=== PATIENT | female | born 1955 | race Caucasian/White ===

== ENCOUNTER → 2019-03-05 | Outpatient (CLI) | payer OTHER ==
[~2019-03-05] MED LIST: 5-Htp100 MG; CALC1.25T; DHEA 10 MG TAB1 EACH PO; ERGO400; Evening Primro500 MG; MAGOXI400; MULT50L; PROG100 PO
[2019-03-07 18:06] LABS: HPV 16 Negative (Negative); HPV 18 Negative (Negative); HPV OTHER HR TYPES Negative (Negative)
== END | disposition home or self-care (01) ==
LOC: LAB 16:00 → LAB SHORT 16:00
PROVIDERS: Obstetrics & Gynecology
DX: Z01.419 Encounter for gynecological examination (general) (routine) without abnormal findings (principal)
CPT/HCPCS: 87624; G0123

== ENCOUNTER → 2020-03-10 | Outpatient (CLI) | payer OTHER ==
[~2020-03-10] MED LIST changes: -CALC1.25T; +CALCIUM CARBON500 M1 PO; -ERGO400; +IMITREX50 M2 PO; +SYNTHROID50 MC1 PO; +VALTREX PO; +VITAMIN D31000 UNI1 PO
[2020-03-13 15:10] LABS: HPV 16 Negative (Negative); HPV 18 Negative (Negative); HPV OTHER HR TYPES Negative (Negative)
== END | disposition home or self-care (01) ==
LOC: LAB SHORT 11:40 → LAB 11:40
PROVIDERS: Obstetrics & Gynecology
DX: Z01.419 Encounter for gynecological examination (general) (routine) without abnormal findings (principal)
CPT/HCPCS: 87624; G0123

== ENCOUNTER → 2020-06-15 | Outpatient (CLI) | payer OTHER ==
[2020-06-15 14:16] LABS: BASOPHILS ABSOLUTE AUTO 0.07 K/mm3 (0.00-0.23); BASOPHILS PERCENT AUTO 1 % (0-2); EOSINOPHILS ABSOLUTE AUTO 0.05 K/mm3 (0.00-0.68); EOSINOPHILS PERCENT AUTO 1 % (0-6); Hematocrit 40.8 % (33.0-51.0); Hemoglobin 13.6 g/dL (11.5-16.0); IMMATURE GRAN ABSOLUTE AUTO 0.04 K/mm3 (0.00-0.10); IMMATURE GRAN PERCENT AUTO 1 % (0-1); LYMPHOCYTES ABSOLUTE AUTO 1.15 K/mm3 (0.84-5.20); LYMPHOCYTES PERCENT AUTO 13 % (21-46); MONOCYTES ABSOLUTE AUTO 0.68 K/mm3 (0.16-1.47); MONOCYTES PERCENT AUTO 8 % (4-13); Mean Corpuscular HGB 29.4 pg (26.0-34.0); Mean Corpuscular HGB Conc 33.3 g/dL (31.5-36.5); Mean Corpuscular Volume 88 fL (80-100); Mean Platelet Volume 10.4 fL (9.1-12.4); NEUTROPHILS ABSOLUTE AUTO 6.76 K/mm3 (1.96-9.15); NEUTROPHILS PERCENT AUTO 77 % (41-73); Platelet Count 230 K/mm3 (150-400); RDW Coefficient Variation 13.5 % (11.7-14.2); RDW Standard Deviation 43.8 fL (35.1-46.3); Red Blood Cell Count 4.63 M/mm3 (3.80-5.20); White Blood Cell Count 8.75 K/mm3 (4.00-11.30)
[2020-06-15 14:31] LABS: Alanine Aminotransfer (ALT/SGP 33 U/L (12-78); Albumin/Globulin Ratio 1.1 (0.8-1.8); Alk Phos 82 U/L (40-126); Anion Gap 8 mmol/L (6-16); Aspartate Aminotrans (AST/SGOT 51 U/L (12-37); Bilirubin, Total 0.4 mg/dL (0.1-1.0); Blood Urea Nitrogen 13 mg/dL (8-24); Bun/Creatinine Ratio 13.8 (12.0-20.0); CO2, Blood 31 mmol/L (21-32); Calcium, Blood 10.1 mg/dL (8.5-10.1); Chloride, Blood 103 mmol/L (98-108); Creatinine, Blood 0.94 mg/dL (0.40-1.00); Globulin, Blood 3.5 g/dL (2.2-4.0); Glomerular Filtration Rate 60 (60-); Glucose, Blood 111 mg/dL (70-99); Potassium, Blood 3.9 mmol/L (3.5-5.5); Sodium, Blood 142 mmol/L (136-145); Total Protein, Blood 7.5 g/dL (6.4-8.2); Troponin I <0.017 ng/mL (0.000-0.040)
== END | disposition home or self-care (01) ==
LOC: LAB SHORT 14:10 → LAB EV 14:10
PROVIDERS: Chiropractor
DX: R07.9 Chest pain, unspecified (principal)
CPT/HCPCS: 80053; 83690; 84484; 85025; 85379

== ENCOUNTER 2020-10-05 16:49 | Inpatient (IN) | payer OTHER | END 2020-10-09 21:10 | disposition short-term general hospital (02) | DRG 444 | LOC: ER 16:49 → ERHOLD 16:50 → MEDS 10-06 12:16 | PROVIDERS: ADMIT Internal Medicine | DX: K80.51 Calculus of bile duct without cholangitis or cholecystitis with obstruction (principal); U07.1 COVID-19; E03.9 Hypothyroidism, unspecified; R74.01 Elevation of levels of liver transaminase levels; R91.1 Solitary pulmonary nodule; Z79.899 Other long term (current) drug therapy; Z88.5 Allergy status to narcotic agent ==

== ENCOUNTER 2021-12-20 11:10 | Day surgery (SDC) | payer MEDICARE ==
[~2021-12-20] VITALS: Ht 167.6 cm; Wt 86.2 kg
[~2021-12-20 11:10] MED LIST changes: +ALEN70; +PANT20
--- NOTE | 2021-12-20 12:33 | NUR ---
12/20/21 1233 RONALD CORONADO CALLED PATIENT'S TO CERTIFIED ORTHOPTIST PAIN RX WHILE PATIENT IS IN SURGERY.
--- NOTE | 2021-12-20 12:47 | NUR ---
12/20/21 1247 Huber Porter ROPIVACAINE 0.5% 30 MLS MIXED W/ EPI 0.15 (1MG/ML) PER ORDER TO MAKE ROPICACINE 0.5% 1:200,000 FOR INJECTION AT OPSITE BY DR BUENO. 30 MLS INJECTED.
== END 2021-12-20 14:30 | disposition home or self-care (01) ==
LOC: ORSCSDS 11:10
PROVIDERS: Podiatrist Foot & Ankle Surgery
PROC: 0SGH04Z Fusion of Right Tarsal Joint with Internal Fixation Device, Open Approach (ICD-10-PCS; principal; 2021-12-20 12:30)
DX: M21.611 Bunion of right foot (principal); E03.9 Hypothyroidism, unspecified; Z79.899 Other long term (current) drug therapy
CPT/HCPCS: A9270; C1713; J0171; J0690; J1100; J2250; J2405; J2704; J2795; J3010

== ENCOUNTER 2022-03-11 09:25 | Day surgery (SDC) | payer MEDICARE ==
[~2022-03-11] VITALS: Ht 167.6 cm; Wt 85.7 kg
[2022-03-11] MEDS ORDERED: ESTRADIOL0.5 MG PO (10:21)
[2022-03-11] MEDS ORDERED: PROG100 PO (10:22)
--- NOTE | 2022-03-11 11:50 | NUR ---
03/11/22 1150 Huber Porter ROPIVCAINE 0.5% 30 MLS MIXED W/ EPI 0.15 (1MG/ML) PER ORDER TO MAKE ROPIVACAINE 0.5% 1:200,000 FOR INJECTION AT OPSITE BY DR BUENO. 30 MLS INJECTED.
--- NOTE | 2022-03-11 13:56 | NUR ---
03/11/22 1356 Carmencita Carrasquillo PATIENT REPORTED 4/10 PAIN THAT WAS TOLERABLE AND EXPRESSED READINESS TO GO HOME
== END 2022-03-11 13:45 | disposition home or self-care (01) ==
LOC: ORSCSDS 09:25
PROVIDERS: Podiatrist Foot & Ankle Surgery
PROC: 0SGJ04Z Fusion of Left Tarsal Joint with Internal Fixation Device, Open Approach (ICD-10-PCS; principal; 2022-03-11 10:45)
PROC: 0QBR0ZZ Excision of Left Toe Phalanx, Open Approach (ICD-10-PCS; principal; 2022-03-11 10:45)
DX: M21.612 Bunion of left foot (principal); E03.9 Hypothyroidism, unspecified
CPT/HCPCS: C1713; J0171; J0690; J1100; J2250; J2405; J2704; J2795; J3010

== ENCOUNTER 2023-03-31 09:32 | Day surgery (SDC) | payer OTHER ==
[~2023-03-31] VITALS: Ht 167.6 cm; Wt 83.5 kg
[~2023-03-31 09:32] MED LIST changes: +ESTRADIOL0.5 MG PO
[2023-03-31] MEDS ORDERED: SUMA25 (09:56)
[2023-03-31] MEDS ORDERED: VITAMIN C125 MG (09:57)
[2023-03-31 12:02] VITALS: BP 107/65
== END 2023-03-31 12:35 | disposition home or self-care (01) ==
LOC: ORSCSDS 09:32
PROVIDERS: Podiatrist Foot & Ankle Surgery
PROC: 0QPP04Z Removal of Internal Fixation Device from Left Metatarsal, Open Approach (ICD-10-PCS; principal; 2023-03-31 11:00)
DX: T84.84XA Pain due to internal orthopedic prosthetic devices, implants and grafts, initial encounter (principal); E03.9 Hypothyroidism, unspecified; K31.9 Disease of stomach and duodenum, unspecified; Z79.899 Other long term (current) drug therapy
CPT/HCPCS: J0171; J0690; J1100; J2405; J2704; J2795; J3010; J7120

== ENCOUNTER 2023-10-17 08:11 | Day surgery (SDC) | payer OTHER ==
[~2023-10-17] VITALS: Ht 167.6 cm; Wt 84.6 kg
[~2023-10-17 08:11] MED LIST changes: +Lactated Ringer's 1,000 ML IV ONE; +SUMA25; +VITAMIN C125 MG; +propofoL 50 ML IV ONE
[2023-10-17] MEDS ORDERED: Lactated Ringer's 1,000 ML IV ONE (08:51)
[2023-10-17 10:09] VITALS: BP 96/65
== END 2023-10-17 10:11 | disposition home or self-care (01) ==
LOC: ORSCSDS 08:11
PROVIDERS: Surgery
PROC: 0DBP8ZX Excision of Rectum, Via Natural or Artificial Opening Endoscopic, Diagnostic (ICD-10-PCS; principal; 2023-10-17 09:15)
DX: Z12.11 Encounter for screening for malignant neoplasm of colon (principal); Z86.010 Personal history of colon polyps; D12.8 Benign neoplasm of rectum; Z79.899 Other long term (current) drug therapy
CPT/HCPCS: 88305; J2704; J7120